=== PATIENT | female | born 1940 | race Caucasian/White ===

== ENCOUNTER → 2017-12-18 | Outpatient (CLI) | payer OTHER | LOC: FIMAGING 12:00 → EDSTATUS 12:01 | PROVIDERS: ATTEND Internal Medicine | DX: M16.0 Bilateral primary osteoarthritis of hip (principal) ==

== ENCOUNTER → 2018-08-18 | Outpatient (CLI) | payer OTHER | LOC: FIMAGING 13:40 | PROVIDERS: ATTEND Internal Medicine | DX: I80.01 Phlebitis and thrombophlebitis of superficial vessels of right lower extremity (principal); M79.89 Other specified soft tissue disorders; M85.871 Other specified disorders of bone density and structure, right ankle and foot | CPT/HCPCS: 82607-90; 84481-90; 86141-90 ==

== ENCOUNTER → 2019-03-21 | Outpatient (CLI) | payer OTHER | LOC: FIMAGING 14:52 ==